=== PATIENT | female | born 1975 | race Caucasian/White ===

== ENCOUNTER 2018-05-04 20:20 | Emergency (ER) | payer OTHER, MEDICAID ==
[~2018-05-04] VITALS: Ht 152.4 cm; Wt 136.1 kg
[2018-05-04 20:29] VITALS: BP_SYST 147
[2018-05-04 21:27] VITALS: BP_SYST 139
== END 2018-05-04 21:27 ==
LOC: SED 20:20
DX: Z02.89 Encounter for other administrative examinations (principal); F12.10 Cannabis abuse, uncomplicated; Z88.5 Allergy status to narcotic agent; Z88.0 Allergy status to penicillin; Z88.6 Allergy status to analgesic agent
CPT/HCPCS: 99283